=== PATIENT | male | born 1985 | race Two or more races ===

== ENCOUNTER 2022-02-11 22:38 | Emergency (ER) | payer BC ==
[~2022-02-11] VITALS: Ht 180.3 cm; Wt 74.8 kg
--- NOTE | 2022-02-11 23:16 | NUR ---
Dr. Chen at bedside for MSE.
[2022-02-11] MEDS ORDERED: HYDROMORPHONE 1 MG/1 ML DISP.SYRIN IV ONE (23:30)
[2022-02-11] MEDS ORDERED: PROCHLORPERAZINE EDISYLATE 10 MG/2 ML VIAL IV ONE (23:30)
[2022-02-11] MEDS ORDERED: PROCHLORPERAZINE EDISYLATE 10 MG/2 ML VIAL ONE (23:31)
[2022-02-11] MEDS ORDERED: HYDROMORPHONE 1 MG/1 ML DISP.SYRIN ONE (23:32)
--- NOTE | 2022-02-11 23:41 | NUR ---
Xray at bedside.
[2022-02-11 23:43] LABS: HEMATOCRIT 45.6 % (36.7-47.1); MEAN CORPUSCULAR HEMOGLOBIN 31.5 uug (23.8-33.4); MEAN CORPUSCULAR VOLUME 89.7 fL (73.0-96.2); PLATELET COUNT (AUTO) 186 K/uL (152-348)
--- NOTE | 2022-02-12 00:06 | NUR ---
Ultrasound at bedside.
[2022-02-12 00:07] LABS: ALANINE AMINOTRANSFERASE 37 U/L (16-63); ALKALINE PHOSPHATASE 63 U/L (50-136); ASPARTATE AMINOTRANSFERASE 19 U/L (15-37); BILIRUBIN,DIRECT 0.2 mg/dL (0.0-0.2); CARBON DIOXIDE 28 mmol/L (21-32); CHLORIDE 100 mmol/L (98-107); CREATININE 1.3 mg/dL (0.6-1.3); GLUCOSE 128 mg/dL (74-106); POTASSIUM 4.2 mmol/L (3.5-5.1); TOTAL PROTEIN, SERUM 8.5 g/dL (6.4-8.2); UREA NITROGEN, BLOOD 17 mg/dL (7-18)
[2022-02-12] MEDS ORDERED: HYDROMORPHONE 1 MG/1 ML DISP.SYRIN ONE (00:22)
[2022-02-12] MEDS ORDERED: HYDROMORPHONE 1 MG/1 ML DISP.SYRIN IV ONE (00:30)
[2022-02-12] MEDS ORDERED: IV NS 1000 ML 1,000 ML IV ONE ×2 (00:30→03:15)
[2022-02-12] MEDS ORDERED: IOHEXOL 300MG/ML 100 ML INFUS..BTL ONE (00:49)
--- NOTE | 2022-02-12 00:52 | NUR ---
Pt out of ER for CT.
--- NOTE | 2022-02-12 01:05 | NUR ---
Pt back to ER from CT.
[2022-02-12] MEDS ORDERED: DOLU1TAB PO (02:58)
--- NOTE | 2022-02-12 03:08 | NUR ---
Called Dr. Tamayo for surgery consult.
--- NOTE | 2022-02-12 04:05 | NUR ---
Dr. Chen speaking with Dr. Aj Tamayo for surgery consult.
[2022-02-12] MEDS ORDERED: OXYC-128 PO (04:15)
[2022-02-12] MEDS ORDERED: PROC-11 PO (04:15)
--- NOTE | 2022-02-12 04:28 | NUR ---
Patient discharged to home in stable condition. Written and verbal after care instructions given. Patient verbalizes understanding of instructions. Stressed follow up or return to ER for worsening s/s. Patient out of ER with steady gait, no acute signs of distress, VSS, all belongings taken, IV site discontinued, provided with copies of lab and diagnostic results, and CD of images, instructed not to drive to be driven home via private vehicle by significant other.
[2022-02-12 04:30] VITALS: BP 137/86
== END 2022-02-12 04:41 | disposition home or self-care (01) ==
LOC: ER 23:13
DX: K80.20 Calculus of gallbladder without cholecystitis without obstruction (principal); I45.10 Unspecified right bundle-branch block; Z20.822 Contact with and (suspected) exposure to COVID-19; Z88.0 Allergy status to penicillin; Z79.899 Other long term (current) drug therapy
CPT/HCPCS: 36415; 71045; 74021; 74177; 76705; 80048; 80076; 83690; 84484; 85025; 85379; 87426; 93005; 96361; 96374; 96375; 96376; 99285; J0780; J1170 ×2; J7040 ×2; Q9967; A4663